=== PATIENT | male | born 1960 | race Asian ===

== ENCOUNTER 2016-07-06 22:10 | Emergency (ER) | payer BC ==
[~2016-07-06] VITALS: Ht 170.2 cm; Wt 86.2 kg
[2016-07-06 22:23] VITALS: BP 118/74; PULSE 91; RESP 18; TEMP 97.9; O2SAT 99
--- NOTE | 2016-07-06 22:28 | NUR ---
Patient triaged and placed in waiting room. VSS and patient appears in no acute distress at this time. Accompanied by FAMILY, awaiting available bed, and Dr. Calderon evaluated pt in [facility]
--- NOTE | 2016-07-07 00:18 | NUR ---
Patient to ER bed 5 to gown for evaluation. Side rails up. Report given to THIAGO CALDWELL.
--- NOTE | 2016-07-07 00:20 | NUR ---
ER at bedside examining patient.
[2016-07-07 01:11] VITALS: BP 112/62; PULSE 88; RESP 18; TEMP 97.7; O2SAT 100
--- NOTE | 2016-07-07 01:12 | NUR ---
Patient given written and verbal discharge instructions and verbalizes understanding. ER MD discussed with patient the results and treatment provided. Patient in stable condition. ID arm band removed. Rx of [place], Motrin given. Patient educated on pain management and to follow up with PMD. Pain Scale 0/10. Opportunity for questions provided and answered.
== END 2016-07-07 01:11 | disposition home or self-care (01) ==
LOC: SED 22:10
DX: S13.4XXA Sprain of ligaments of cervical spine, initial encounter (principal); V89.2XXA Person injured in unspecified motor-vehicle accident, traffic, initial encounter; Y93.89 Activity, other specified; Y92.89 Other specified places as the place of occurrence of the external cause; Y99.8 Other external cause status
CPT/HCPCS: 72040-TC; 99284